=== PATIENT | male | born 1950 | race Caucasian/White ===

== ENCOUNTER → 2017-07-29 | Outpatient (CLI) | payer BC, MEDICARE | END | disposition home or self-care (01) | LOC: RAD 09:35 | PROVIDERS: ATTEND Orthopaedic Surgery | DX: M17.12 Unilateral primary osteoarthritis, left knee (principal) | CPT/HCPCS: 73700 ==

== ENCOUNTER 2017-08-24 00:33 | Inpatient (IN) | payer BC, MEDICARE ==
[~2017-08-24] VITALS: Ht 189.2 cm; Wt 108.4 kg
[2017-08-24] VITALS (13 sets, daily range): BP systolic 104–147; BP diastolic 59–86
[~2017-08-24 00:33] MED LIST: ASPI-484 PO; CITA20TA5 PO; ROSU10TA PO
[2017-08-24] MEDS ORDERED: ANCEF ONE (05:04)
[2017-08-24] MEDS ORDERED: NS 100ML 100 ML IV ONE ×2 (05:04→08:53)
[2017-08-24] MEDS ORDERED: LACTATED RINGERS 1,000 ML IV ONE (06:00)
--- NOTE | 2017-08-24 06:04 | PCM.EKG ---
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
[2017-08-24] MEDS ORDERED: ZOFRAN ONE (06:55)
[2017-08-24] MEDS ORDERED: TORADOL ONE (06:55)
[2017-08-24] MEDS ORDERED: NEOSTIGMINE ONE (06:55)
[2017-08-24] MEDS ORDERED: DECADRON ONE (06:55)
[2017-08-24] MEDS ORDERED: SUBLIMAZE ONE (06:56)
[2017-08-24] MEDS ORDERED: ZEMURON IV ONE (06:56)
[2017-08-24] MEDS ORDERED: DIPRIVAN IV ONE (06:56)
[2017-08-24] MEDS ORDERED: LIDOCAINE 2% VIAL ONE (06:57)
[2017-08-24] MEDS ORDERED: NAROPIN 0.5% 5 MG/ML VIAL ONE (06:58)
[2017-08-24] MEDS ORDERED: SODIUM CHLORIDE IR ONE (07:23)
[2017-08-24] MEDS ORDERED: NS 250ML 250 ML IV ONE (07:24)
[2017-08-24] MEDS ORDERED: NS 3000ML IRR IR ONE (07:24)
[2017-08-24] MEDS ORDERED: NS 100ML 200 ML IV ONE (07:24)
[2017-08-24] MEDS ORDERED: CLONIDINE 1,000 MCG/10 ML VIAL EP ONE (07:25)
[2017-08-24] MEDS ORDERED: DURAMORPH ONE (07:25)
[2017-08-24] MEDS ORDERED: TRANEXAMIC ACID IV ONE (07:30)
[2017-08-24] MEDS ORDERED: EXPAREL 266 MG/20 ML VIAL IJ ONE (08:30)
[2017-08-24] MEDS: LACTATED RINGERS 1,000 ML IV SCH ×2 (11:00→21:36)
[2017-08-24] MEDS ORDERED: SUBLIMAZE IV PRN (11:00)
[2017-08-24] MEDS ORDERED: ZOFRAN IV PRN (11:00)
[2017-08-24] MEDS ORDERED: MORPHINE SULFATE IV PRN ×3 (11:00→12:12)
[2017-08-24] MEDS ORDERED: LACTATED RINGERS 1,000 ML IV SCH (11:30)
[2017-08-24] MEDS ORDERED: CEPACOL SORE THROAT LOZENGE MM PRN (11:30)
--- NOTE | 2017-08-24 11:37 | HPH ---
ADMIT DATE: 08/24/2017 CHIEF COMPLAINT: Painful left knee. HISTORY OF PRESENT ILLNESS: The patient is a 67-year-old male with left knee pain for approximately 3 years. He has difficulty with household ambulation. He also complains of limping and is limited in his daily activities because of knee pain. He has been on Ultram as well as Aleve in the past. The patient is no better with cortisone injections, bracing, Orthovisc injections as well as physical therapy. He has had arthroscopy. The patient has full range of motion about the left knee. There is a 2+ effusion. His ligaments are normal. He has moderate crepitation. X-rays show that he is [id number]-[id number] medially and has narrowing and osteophytes about the patellofemoral joint. He is being admitted today for left total knee arthroplasty. PAST MEDICAL HISTORY: Medical problems include coronary artery disease. He has a history of deep venous thrombosis as well as a history of West Nile virus infection. PREVIOUS SURGICAL PROCEDURES: Include left knee scope as well as cardiac stent placement. ALLERGIES: HE HAS NO KNOWN DRUG ALLERGIES. FAMILY HISTORY: Positive for peripheral vascular disease, CVA as well as cancer. SOCIAL HISTORY: He lives in [place] with his . He does not smoke or drink. REVIEW OF SYSTEMS: Negative for chest pain, shortness of breath, nausea, vomiting, melena, hematochezia, dysuria, hematuria, fever, chills or weight loss. MEDICATIONS: Include aspirin, citalopram, as well as Crestor. PHYSICAL EXAMINATION: GENERAL: Shows a 6 feet, 2 inches, 215 pounds male in no acute distress. HEENT: Within normal limits for his age. CHEST: Clear to auscultation bilaterally. HEART: Regular rate and rhythm, no murmur. ABDOMEN: Soft, nontender, good bowel sounds. EXTREMITIES: Left knee has a 2+ effusion. He has full extension with 120 degrees of flexion and good medial and lateral stability. His Alexis and posterior drawer exam were normal. Hip has good internal and external rotation with no pain. NEUROLOGIC: He is awake and alert. He is oriented x 3. Cranial nerves 2-12 grossly intact. He has 5/5 strength of all muscle groups of his upper extremities as well as his lower extremities. ASSESSMENT: OA of the left knee. Other diagnoses include history of DVT as well as coronary artery disease. PLAN: The patient is being admitted for left total knee arthroplasty. The risks and hazards of the procedure have been explained to the patient and his family. They understand the risk and wanted to proceed. Troy Umaña MD DR: MARCIE/pablo JOB# [id number]
--- NOTE | 2017-08-24 11:46 | DIREP ---
This report includes an Addendum and supersedes previous reports for this exam. PROCEDURE:XRAY KNEE 2 VWS-LT COMPARISON:None. INDICATIONS:postop, total left knee FINDINGS: BONES:No fractures. JOINTS:The patient has had total hip arthroplasty. Prosthesis is in good position. SOFT TISSUES:Skin mp anteriorly. OTHER:No additional findings. CONCLUSION:The patient has had left total hip arthroplasty with no complications. Dictated by: Mirza Hannah M.D. on 08/24/2017 at 11:42 AM NDUM: The patient has had left total knee arthroplasty. There are no complications. Dictated by: Mirza Hannah M.D. on 08/24/2017 at 12:03 PM
--- NOTE | 2017-08-24 12:00 | NUR ---
Patient arrived to unit.
--- NOTE | 2017-08-24 12:17 | OPH ---
DATE OF SURGERY: 08/24/2017 PREOPERATIVE DIAGNOSIS: OA of the left knee. POSTOPERATIVE DIAGNOSIS: OA of the left knee. OPERATIVE PROCEDURES: Left total knee arthroplasty using Medacta Sphere knee, size 5 femur, a size 5 tibia, a 14 mm insert, large dome patella, all components were cemented. DESCRIPTION OF INDICATIONS: The patient is a 67-year-old male with left knee pain for several years. He has household pain as well as pain with prolonged ambulation. He is limited in his daily activities. He has had anti-inflammatories as well as Ultram for the pain. He has also tried physical therapy and bracing. He has had arthroscopy with no relief. He has full range of motion of the knee, good medial and lateral stability, moderate crepitation, 2+ effusion. The patient's x-rays show that he is przf-hj-jzna medially with patellofemoral narrowing and osteophytes. DESCRIPTION OF PROCEDURE: The patient was placed on the operating table in the supine position. A general endotracheal anesthetic was induced without difficulty. The patient had a well-padded tourniquet placed around the left thigh. Left lower extremity was then sterilely prepped and draped. The leg was then exsanguinated with an Esmarch and then the tourniquet was inflated to 300 mm with a good bounce. The knee was flexed to 90 degrees. An anterior incision was made about the knee. The full thickness flaps were developed medially and laterally. A medial parapatellar arthrotomy was then performed. The patient had the medial and lateral meniscectomies performed. The medial capsule and the MCL were released around the posterior medial corner. The anterior and posterior cruciate ligaments were excised. The patient then had the MyKnee femoral guide placed about the distal femur. It was held into position with multiple pins. The distal femoral cut was then made with the saw. The size 5, #2 cutting block was then placed about the distal femur. The cutting block was held into position with 2 screws and 2 pins. The patient then had an anterior and posterior femoral cuts as well as the chamfer cuts made. The patient then had the tibia subluxed anteriorly. The tibial cutting guide was applied and held into position with multiple pins. The tibial cut was then made. We then used the flexion and extension blocks and with the 14 mm block, the patient had good stability at 90 degrees as well as full extension. The patient then had a size 5 tibial trial applied and held into position with 2 pins. The central drill hole was made and then the cruciate punch was used to stabilize the tibial component. A trial reduction was done with a 5 tibia, a 5 femur and a 14 mm insert. The knee went out into full extension, he got 120 degrees of flexion. There was excellent medial and lateral stability throughout. The patient then had the patella everted. Patellar cut was made. There were still 16 mm of patella left. The drill holes were made and the large dome patella was used. There was good tracking of the patella. The final medial and lateral femoral drill holes were made. The femoral sulcus cut was made. The patient then had the trial components removed. The wounds were copiously irrigated. The soft tissue was injected with Exparel. The patient then had the size 5 tibial component cemented into position. The 14 mm insert was impacted into position and secured with an anterior screw. The patient then had the size 5 femoral component cemented as was the patella. Once all the excess cement was removed and the cement had hardened, then the patient had the wound irrigated for 3 minutes with Betadine-containing solution. The bleeding was controlled with the Aquamantys device after the tourniquet was released. The patient had the capsule closed with a #2 PDS in interrupted [id number] manner. The knee joint was then injected with 1 gram of tranexamic acid diluted with 100 mL of saline. The subQ was then closed with 2-0 Monocryl barbed in a running manner and then the skin was closed with mp. A medium size Aquacel dressing reinforced with 4 x 4's, ABD pads, cast padding and Jordan wrap was applied. The patient was extubated in the operating room, sent to recovery in stable condition. Troy Umaña MD DR: MARCIE/pablo JOB# [id number]
[2017-08-24] MEDS: TYLENOL PO SCH ×2 (13:21→17:58)
[2017-08-24] MEDS ORDERED: ANCEF 2 GM/D5W 50ML IV SCH (14:00)
[2017-08-24] MEDS: NS IV SCH ×2 (14:35→21:40)
[2017-08-24] MEDS: ANCEF IV SCH ×2 (14:35→21:40)
[2017-08-24 18:02] LABS: HEMOGLOBIN 14.5 g/dL (13.9-16.3); MEAN CELL HGB 31.6 pg (26-34); MEAN CELL HGB CONCENTRATION 32.5 g/dL (33-37); MEAN CORP VOLUME 97.2 fL (78-100); MEAN PLATELET VOLUME 9.5 fL (7.8-11.0); RED CELL DISTRIBUTION WIDTH 13.9 % (11.5-14.5); WHITE BLOOD CELL 11.7 10^3/uL (4.5-11.0)
--- NOTE | 2017-08-24 18:33 | PRM.PN ---
Subjective Subjective Date: Aug 24, 2017 Time: 18:32 Subjective Awake and alert No pain VSS HGB 14 Stable Patient History: Alzheimer's disease 32 MOTHER, , Age:78 Chronic obstructive pulmonary disease 32 MOTHER, , Age:78 33 FATHER, , Age:64 FH: coronary artery disease G8 BROTHER High cholesterol G8 BROTHER No known health problems G8 BROTHER G8 SISTER 19 CHILD 19 CHILD No Family History of: Asthma Cerebrovascular disorder Congestive heart failure Diabetes insipidus Diabetes mellitus Hypertension Parkinson's disease VTE VTE Risk Total Score: >5 VTE Risk Score VTE Risk: Score 0-1 = Low Risk (Aggressive mobilization; early ambulation; no VTE prophylaxis required) Score 2: Moderate Risk (Intermittent/Pneumatic Compression Device OR Lovenox/Heparin/Coumadin) Score 3-4: High Risk (Intermittent/Pneumatic Compression Device AND Lovenox/Heparin/Coumadin) Score > or =5: Highest Risk (Intermittent/Pneumatic Compression Device AND Lovenox/Heparin/Coumadin) Review of Systems Allergies: Coded Allergies: ticagrelor (Verified Allergy, Severe, CHEST PAIN, 08/20/17) Scheduled Aspirin (Aspir 81), 1 TAB PO HS, (Reported) Citalopram Hydrobromide (Citalopram Hbr), 1 TAB PO HS, (Reported) Rosuvastatin 10MG (Crestor 10MG), 1 TAB PO HS, (Reported) Objective Vitals and I/O Vital Sign - Last 24 Hours 08/24/17 08/24/17 08/24/17 08/24/17 06:01 06:01 07:35 07:39 Temp 97.3 Pulse 60 54 49 Resp 18 B/P (MAP) 138/60 (86) 137/86 (103) 139/83 (101) Pulse Ox 98 96 97 O2 Delivery Room Air Room Air Nasal Canula Nasal Canula O2 Flow Rate 3 3 08/24/17 08/24/17 08/24/17 08/24/17 07:48 07:59 10:46 10:46 Temp 97.8 Pulse 48 51 66 Resp 18 B/P (MAP) 147/81 (103) 140/85 (103) 122/76 (91) Pulse Ox 97 97 98 O2 Delivery Nasal Canula Nasal Canula Non-Rebreather O2 Flow Rate 3 3 10 10 08/24/17 08/24/17 08/24/17 08/24/17 10:51 11:06 11:21 11:36 Temp 97.3 97.3 97.2 97.3 Pulse 60 57 57 57 Resp 18 18 18 18 B/P (MAP) 125/72 (89) 121/68 (85) 119/70 (86) 114/65 (81) Pulse Ox 97 96 97 96 O2 Delivery Non-Rebreather Nasal Canula Nasal Canula Nasal Canula O2 Flow Rate 5 3 3 1 08/24/17 08/24/17 08/24/17 08/24/17 11:55 15:35 15:37 16:03 Temp 97.9 Pulse 74 56 Resp 12 12 20 B/P (MAP) 125/76 (92) Pulse Ox 96 96 90 O2 Delivery Room Air Nasal Cannula O2 Flow Rate 2.00 FiO2 28 Medication Reconciliation Scheduled Aspirin (Aspir 81), 1 TAB PO HS, (Reported) Citalopram Hydrobromide (Citalopram Hbr), 1 TAB PO HS, (Reported) Rosuvastatin 10MG (Crestor 10MG), 1 TAB PO HS, (Reported) Course Blood Pressure Systolic: 125 Blood Pressure Diastolic: 76 Blood Pressure Mean: 92 Assessment/Plan Assessment/Plan Patient History: Alzheimer's disease 32 MOTHER, , Age:78 Chronic obstructive pulmonary disease 32 MOTHER, , Age:78 33 FATHER, , Age:64 FH: coronary artery disease G8 BROTHER High cholesterol G8 BROTHER No known health problems G8 BROTHER G8 SISTER 19 CHILD 19 CHILD No Family History of: Asthma Cerebrovascular disorder Congestive heart failure Diabetes insipidus Diabetes mellitus Hypertension Parkinson's disease SARKIS NAIK MD Aug 24, 2017 18:33
[2017-08-24] MEDS ORDERED: CELEBREX PO SCH (21:00)
[2017-08-24] MEDS: CRESTOR PO SCH (21:00)
[2017-08-24] MEDS: CELEXA PO SCH (21:00)
[2017-08-24] MEDS ORDERED: CELEBREX PO ONE (21:00)
[2017-08-24] MEDS: ULTRAM PO PRN (21:33)
[2017-08-24] MEDS: ASPIRIN EC PO SCH (21:33)
[2017-08-25] MEDS: TYLENOL PO SCH ×5 (00:15→23:26)
[2017-08-25] MEDS: AMBIEN PO PRN ×2 (00:15→21:44)
--- NOTE | 2017-08-25 00:15 | NUR ---
PT GIVEN AMBEIN FOR INSOMNIA. REPOSITIONED PT IN BED. PULSES PALPABLE ICEMAN INTACT TO LEFT KNEE.
[2017-08-25] MEDS: ULTRAM PO PRN ×3 (01:43→20:50)
[2017-08-25 04:30] VITALS: BP 137/77
[2017-08-25 05:16] LABS: HEMOGLOBIN 13.8 g/dL (13.9-16.3); MEAN CELL HGB 31.9 pg (26-34); MEAN CORP VOLUME 96.5 fL (78-100); MEAN PLATELET VOLUME 9.6 fL (7.8-11.0); RED CELL DISTRIBUTION WIDTH 13.6 % (11.5-14.5); WHITE BLOOD CELL 14.4 10^3/uL (4.5-11.0)
[2017-08-25] MEDS: ANCEF IV SCH (05:30)
[2017-08-25] MEDS: NS IV SCH (05:30)
--- NOTE | 2017-08-25 06:30 | NUR ---
REPORT RECEIVED HANDOFF REPORT
--- NOTE | 2017-08-25 08:15 | NUR ---
PATIENT RESTING IN BED. SIDERAILS UPX2, CALL LIGHT WITHIN REACH, BED IN LOW POSITION AND LOCKED. OPATIENT REPORTS NO PAIN AND SHOWS NO SIGNS OF DISTRESS.
--- NOTE | 2017-08-25 08:40 | NUR ---
Post op pain visit POD #1 after knee surgery and nerve block. Pt is in bed with @ bedside. nerve block is still effective. No pain sensations since surgery. Pt has yet to ambulated. No complications noted. Pt is very pleased with pain block and anesthetic.
[2017-08-25 08:50] VITALS: BP 131/77
[2017-08-25] MEDS: XARELTO PO SCH (08:54)
[2017-08-25] MEDS: PEPCID PO SCH (08:54)
[2017-08-25] MEDS: COLACE PO SCH (08:54)
[2017-08-25 09:14] LABS: CALCIUM 9.1 mg/dL (8.4-10.5); CARBON DIOXIDE 29.5 mmol/L (20.0-32)
--- NOTE | 2017-08-25 10:10 | NUR ---
CATHETER DC CATHETER.
--- NOTE | 2017-08-25 10:30 | NUR ---
DISCHARGE PLAN CM VISITED WITH PATIENT AND REGARDING DISCHARGE PLAN AND NEEDS. PATIENT LIVES IN [place] AT HOME WITH HIS . HE IS IN [place] STAYING WITH A SISTER IN LAW FOR HIS SURGERY AND WILL STAY LONG NEEDED FOR PHYSICAL THERAPY AND FOLLOW UP APPOINTMENTS. 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 PATIENT HAS A WALKER THAT HE BROUGHT TO [place] WITH HIM AND A SHOWER CHAIR BACK HOME IN [place]. HE IS NOT ON HOME OXYGEN. PATIENT WANTS TO COME TO [facility] FOR OUTPATIENT PHYSICAL THERAPY. CM SPOKE WITH ORTHOTICS DEPT AT [facility] IN [place] AND ORDER FAXED FOR CPM. [facility] STATED THEY WILL DELIVER THE CPM BUT IT MAY BE THURSDAY OR THURSDAY BEFORE THEY COME TO [place]. DISCHARGE GOAL IS TO DISCHARGE TO IRAM'S HOME WITH HIS AND IRAM AND COMPLETE HIS PHYSICAL THERAPY AT [facility] AN OUTPATIENT. CM DEPT WILL CONTINUE TO MONITOR DISCHARGE NEEDS.
[2017-08-25] MEDS: LACTATED RINGERS 1,000 ML IV SCH (11:00)
[2017-08-25] MEDS ORDERED: NEURONTIN PO SCH (11:00)
--- NOTE | 2017-08-25 11:04 | DIREP ---
PROCEDURE:CHEST 2 VIEWS COMPARISON:None. INDICATIONS:cad FINDINGS: LUNGS/PLEURA:Low lung volumes. Presumed linear atelectasis or scarring at the left lung base. No confluent airspace consolidation, sizeable pleural effusion or appreciable pneumothorax is identified. VASCULATURE:Normal. Unremarkable pulmonary vasculature. CARDIAC:The heart is not significantly enlarged for technique. MEDIASTINUM:Mediastinal contours appear within normal limits. BONES:Mild degenerative changes of the thoracic spine. OTHER:Negative. CONCLUSION: 1. Low lung volumes. No acute cardiopulmonary abnormality identified. Dictated by: Forrest Mora M.D. On 08/25/2017 at 11:01 AM
--- NOTE | 2017-08-25 11:40 | PRM.PN ---
Subjective Subjective Date: August 25, 2017 Time: 11:38 Subjective Up in chair with PT Unable to wt bear because of quad weakness from block No pain HGB 13.8 Good rom of ankle Cont with PT Patient History: Alzheimer's disease 32 MOTHER, , Age:78 Chronic obstructive pulmonary disease 32 MOTHER, , Age:78 33 FATHER, , Age:64 FH: coronary artery disease G8 BROTHER High cholesterol G8 BROTHER No known health problems G8 BROTHER G8 SISTER 19 CHILD 19 CHILD No Family History of: Asthma Cerebrovascular disorder Congestive heart failure Diabetes insipidus Diabetes mellitus Hypertension Parkinson's disease VTE VTE Risk Total Score: >5 VTE Risk Score VTE Risk: Score 0-1 = Low Risk (Aggressive mobilization; early ambulation; no VTE prophylaxis required) Score 2: Moderate Risk (Intermittent/Pneumatic Compression Device OR Lovenox/Heparin/Coumadin) Score 3-4: High Risk (Intermittent/Pneumatic Compression Device AND Lovenox/Heparin/Coumadin) Score > or =5: Highest Risk (Intermittent/Pneumatic Compression Device AND Lovenox/Heparin/Coumadin) Review of Systems Allergies: Coded Allergies: ticagrelor (Verified Allergy, Severe, CHEST PAIN, 08/20/17) Scheduled Aspirin (Aspir 81), 1 TAB PO HS, (Reported) Citalopram Hydrobromide (Citalopram Hbr), 1 TAB PO HS, (Reported) Rosuvastatin 10MG (Crestor 10MG), 1 TAB PO HS, (Reported) Objective Vitals and I/O Vital Sign - Last 24 Hours 08/24/17 08/24/17 08/24/17 08/24/17 11:55 15:35 15:37 16:03 Temp 97.9 Pulse 74 56 Resp 12 12 20 B/P (MAP) 125/76 (92) Pulse Ox 96 96 90 O2 Delivery Room Air Nasal Cannula O2 Flow Rate 2.00 FiO2 28 08/24/17 08/24/17 08/24/17 08/24/17 19:20 19:37 21:09 23:44 Temp 97.7 97.3 Pulse 67 67 63 Resp 18 18 B/P (MAP) 125/73 (90) 104/59 (74) Pulse Ox 94 94 90 O2 Delivery Nasal Cannula Nasal Canula Nasal Cannula Nasal Canula O2 Flow Rate 2.00 2.00 08/25/17 08/25/17 08/25/17 08/25/17 04:30 08:50 09:05 09:10 Temp 98.0 98.0 Pulse 54 51 60 Resp 18 20 18 B/P (MAP) 137/77 (97) 131/77 (95) Pulse Ox 94 98 92 O2 Delivery Nasal Canula Nasal Cannula Nasal Cannula O2 Flow Rate 2.00 2.00 FiO2 28 Intake and Output 08/24/17 08/24/17 08/25/17 15:00 23:00 07:00 Intake Total 7460 ml 940 ml 600 ml Output Total 500 ml 2000 ml 1600 ml Balance 6960 ml -1060 ml -1000 ml Medication Reconciliation Scheduled Aspirin (Aspir 81), 1 TAB PO HS, (Reported) Citalopram Hydrobromide (Citalopram Hbr), 1 TAB PO HS, (Reported) Rosuvastatin 10MG (Crestor 10MG), 1 TAB PO HS, (Reported) Course Blood Pressure Systolic: 131 Blood Pressure Diastolic: 77 Blood Pressure Mean: 95 Assessment/Plan Assessment/Plan Patient History: Alzheimer's disease 32 MOTHER, , Age:78 Chronic obstructive pulmonary disease 32 MOTHER, , Age:78 33 FATHER, , Age:64 FH: coronary artery disease G8 BROTHER High cholesterol G8 BROTHER No known health problems G8 BROTHER G8 SISTER 19 CHILD 19 CHILD No Family History of: Asthma Cerebrovascular disorder Congestive heart failure Diabetes insipidus Diabetes mellitus Hypertension Parkinson's disease SARKIS NAIK MD August 25, 2017 11:40
[2017-08-25 11:58] VITALS: BP 120/65
--- NOTE | 2017-08-25 14:30 | NUR ---
Decreased quad control with gait. Signed: 08/25/17 at 1430 by Debo Dailey, INTERMEDIATE PROJECT MANAGER PT
--- NOTE | 2017-08-25 16:43 | NUR ---
STATUS PATIENT URINATED 150 CC CLEAR YELLOW URINE.
[2017-08-25 16:57] VITALS: BP 127/79
--- NOTE | 2017-08-25 18:30 | NUR ---
REPORT GAVE HANDOFF REPORT
[2017-08-25 19:50] VITALS: BP 121/73
[2017-08-25] MEDS: ASPIRIN EC PO SCH (20:36)
[2017-08-25] MEDS: CELEXA PO SCH (21:00)
[2017-08-25] MEDS: CRESTOR PO SCH (21:00)
[2017-08-26 00:35] VITALS: BP 135/57
[2017-08-26] MEDS: LACTATED RINGERS 1,000 ML IV SCH ×2 (03:40→20:20)
[2017-08-26] MEDS: ULTRAM PO PRN ×5 (04:22→20:35)
[2017-08-26 05:01] VITALS: BP 137/79
--- NOTE | 2017-08-26 05:08 | CNH ---
DATE OF CONSULTATION: PRIMARY PHYSICIAN: Troy Umaña MD CHIEF COMPLAINT: Preop evaluation before left knee replacement. HISTORY OF PRESENT ILLNESS: The patient is a 67-year-old white male who has known history of CAD, who had an acute coronary event over a year ago and had a LAD stenting done and was on Effient and aspirin, which have been stopped for over 2 weeks now and he is going to undergo left total knee arthroplasty for severe degenerative joint disease and has difficulty walking. Denies any history of any chest pain or unusual shortness of breath. He does have some generalized weakness and fatigue. No leg edema and no other known chronic medical illness such as hypertension, diabetes. Has dyslipidemia. ALLERGIES: BRILINTA. MEDICATIONS: He has been on aspirin 81 mg once a day, citalopram 20 mg once a day, Crestor 10 mg once a day. He was on Effient, which has been stopped. PAST MEDICAL HISTORY: History of West Nile virus infection few years ago, has deep vein thrombosis and coronary event, dyslipidemia. SOCIAL HISTORY: He lives in [place] with his . No smoking. No alcohol abuse. FAMILY HISTORY: Positive for peripheral vascular disease and had stroke and cancer in the family. Mother of dementia and complications. PHYSICAL EXAMINATION: GENERAL: He is alert, awake and oriented. VITAL SIGNS: 95 kg, 189 cm and 26.6 kilograms per meter squared BMI with a pulse of about 50. Blood pressure was 120/60, respirations 18, 96 saturations. HEENT: Unremarkable. NECK: No JVD, no carotid bruits. LUNGS: Clear. HEART: Sounds normal, bradycardia noted. ABDOMEN: Soft, nontender. No organomegaly. EXTREMITIES: Distal pulses fairly well felt. Left knee painful. No edema noted. NEUROLOGIC: No obvious neuro deficit. IMAGING STUDIES: EKG: Regular sinus rhythm, within normal limits. ____ all acceptable. IMPRESSION: Preop cardiovascular evaluation, history of dyslipidemia, coronary event, LAD stenting, asymptomatic, bradycardia, rule out underlying sinus node dysfunction with a baseline rate of 50, has dropped down into the mid 40s, very likely has sinus node dysfunction. RECOMMENDATIONS: At this time, the patient clinically is stable for surgery at this time under anesthesia. We will follow postop and further management depending on the clinical course. Thank you very much for this consultation. Laxmichand MD Shahla DR: BAILEY/pablo JOB# [id number]
[2017-08-26 05:12] LABS: HEMOGLOBIN 13.6 g/dL (13.9-16.3); MEAN CELL HGB 31.9 pg (26-34); MEAN CELL HGB CONCENTRATION 32.9 g/dL (33-37); MEAN PLATELET VOLUME 9.9 fL (7.8-11.0); RED CELL DISTRIBUTION WIDTH 14.1 % (11.5-14.5); WHITE BLOOD CELL 10.3 10^3/uL (4.5-11.0)
[2017-08-26] MEDS: TYLENOL PO SCH ×3 (06:08→17:00)
--- NOTE | 2017-08-26 07:16 | PNH ---
DATE: 08/25/2017 PRIMARY PHYSICIAN: Troy Umaña MD SUBJECTIVE: Post left knee replacement. OBJECTIVE: VITAL SIGNS: Stable. His temperature is 98, 54 pulse, respiration 18, 137/77 blood pressure, saturation 98% on 2 liters nasal cannula. Intake and output shows that he has positive balance of almost 4900. We will discontinue fluids. He is drinking well. LUNGS: Clinically, clear. HEART: Sounds are normal. LABORATORY DATA: Hemoglobin 13.8, dropped from 14.5. Postoperatively, electrolytes were normal today with a BUN of 14 and creatinine 0.9 and slight low albumin of 3.3. INR 1.1. Doing well on incentive spirometry. Pain status seems to be fairly acceptable around 3-4 and he will be doing physical therapy. IMPRESSION: Post left knee replacement, CAD, post-acute coronary event about a year ago, was on dual antiplatelet therapy, off of it for 3 weeks and on Xarelto 10 mg once a day, post-knee replacement along with aspirin 81 mg once a day and he is not on any beta blockers sinus bradycardia, underlying sinus node dysfunction was a consideration. PLAN: At this time, continue physical therapy. Laxmichand MD Shahla DR: BAILEY/pablo JOB# [id number]
--- NOTE | 2017-08-26 07:25 | NUR ---
REPORT RECEIVED FROM ARTURO RILEY. PATIENT AWAKE AND ALERT SITTING UP IN BED. LEFT KNEE WITH ICE MAN IN PLACE. PATIENT REPORTS LEFT KNEE FEELS "REMBERTO HOT". ICE MAN CHECKED AND COLD TO TOUCH. PULSES PRESENT. REPORTS PAIN IS "3" ON PAIN SCALE. AGREES TO PAIN MED PRIOR TO PHYSICAL THERAPY. FAMILY AT BEDSIDE. SR UP X2. CALL LIGHT WITHIN REACH.
[2017-08-26 08:03] VITALS: BP 131/70
--- NOTE | 2017-08-26 08:19 | PRM.PN ---
Subjective Subjective Date: August 26, 2017 Time: 08:18 Subjective Some pain this am Better active ROM VSS HGB 13.6 Cont with PT Patient History: Alzheimer's disease 32 MOTHER, , Age:78 Chronic obstructive pulmonary disease 32 MOTHER, , Age:80 33 FATHER, , Age:64 FH: coronary artery disease G8 BROTHER High cholesterol G8 BROTHER No known health problems G8 BROTHER G8 SISTER 19 CHILD 19 CHILD No Family History of: Asthma Cerebrovascular disorder Congestive heart failure Diabetes insipidus Diabetes mellitus Hypertension Parkinson's disease VTE VTE Risk Total Score: >5 VTE Risk Score VTE Risk: Score 0-1 = Low Risk (Aggressive mobilization; early ambulation; no VTE prophylaxis required) Score 2: Moderate Risk (Intermittent/Pneumatic Compression Device OR Lovenox/Heparin/Coumadin) Score 3-4: High Risk (Intermittent/Pneumatic Compression Device AND Lovenox/Heparin/Coumadin) Score > or =5: Highest Risk (Intermittent/Pneumatic Compression Device AND Lovenox/Heparin/Coumadin) Review of Systems Allergies: Coded Allergies: ticagrelor (Verified Allergy, Severe, CHEST PAIN, 08/20/17) Scheduled Aspirin (Aspir 81), 1 TAB PO HS, (Reported) Citalopram Hydrobromide (Citalopram Hbr), 1 TAB PO HS, (Reported) Rosuvastatin 10MG (Crestor 10MG), 1 TAB PO HS, (Reported) Objective Vitals and I/O Vital Sign - Last 24 Hours 08/25/17 08/25/17 08/25/17 08/25/17 08:50 09:05 09:10 11:58 Temp 98.0 97.9 Pulse 51 60 54 Resp 20 18 20 B/P (MAP) 131/77 (95) 120/65 (83) Pulse Ox 98 92 99 O2 Delivery Nasal Cannula Nasal Cannula O2 Flow Rate 2.00 2.00 FiO2 28 08/25/17 08/25/17 08/25/17 08/25/17 16:57 19:24 19:50 20:34 Temp 98.8 97.8 Pulse 53 52 59 Resp 18 18 18 B/P (MAP) 127/79 (95) 121/73 (89) Pulse Ox 96 96 96 O2 Delivery Room Air Nasal Cannula Room Air O2 Flow Rate 2.00 08/26/17 08/26/1718 00:35 05:01 08:03 Temp 98.3 97.8 98.3 Pulse 57 53 54 Resp 16 16 18 B/P (MAP) 135/57 (83) 137/79 (98) 131/70 (90) Pulse Ox 91 94 94 O2 Delivery Room Air Intake and Output 08/25/17 08/25/17 08/26/17 15:00 23:00 07:00 Intake Total 1480 ml 560 ml Output Total 1350 ml 1900 ml Balance 130 ml -1340 ml Medication Reconciliation Scheduled Aspirin (Aspir 81), 1 TAB PO HS, (Reported) Citalopram Hydrobromide (Citalopram Hbr), 1 TAB PO HS, (Reported) Rosuvastatin 10MG (Crestor 10MG), 1 TAB PO HS, (Reported) Course Blood Pressure Systolic: 131 Blood Pressure Diastolic: 70 Blood Pressure Mean: 90 Assessment/Plan Assessment/Plan Patient History: Alzheimer's disease 32 MOTHER, , Age:80 Chronic obstructive pulmonary disease 32 MOTHER, , Age:80 33 FATHER, , Age:64 FH: coronary artery disease G8 BROTHER High cholesterol G8 BROTHER No known health problems G8 BROTHER G8 SISTER 19 CHILD 19 CHILD No Family History of: Asthma Cerebrovascular disorder Congestive heart failure Diabetes insipidus Diabetes mellitus Hypertension Parkinson's disease SARKIS NAIK MD August 26, 2017 08:19
--- NOTE | 2017-08-26 08:20 | NUR ---
STATUS PATIENT SITTING IN BED SOCIALIZING. HELPED PATIENT WITH ORAL CARE. PATIENT REPORTS PAIN 3. SIDE RAILS UP X2, BED LOCKED AND IN LOW POSITION, CALL LIGHT WITHIN REACH. Addendum: 08/26/17 at 1204 by Carole Albert LVN - Med/Surg NAIL FEEDER GAVE 50 MG OF ULTRAM.
[2017-08-26] MEDS: PEPCID PO SCH (08:24)
[2017-08-26] MEDS: COLACE PO SCH (08:24)
[2017-08-26] MEDS: XARELTO PO SCH (08:24)
--- NOTE | 2017-08-26 11:00 | NUR ---
TEACHING DISCUSSED WITH PATIENT AND GAVE A HAND OUT REGARDING XARELTO USES AND S/S TO REPORT. PATIENT AND SPOUSE VERBALIZED UNDERSTANDING. PATIENT REPORTS PAIN OF 5. AT 0820 PATIENT ONLY WANTED TO TAKE ON 50 MG TABLET OF ULTRAM INSTEAD OF TWO TABLETS. THER WAS AN ORDER FOR EITHER ONE 50MG TABLET OR 2 50 MG TABLETS Q 4 HRS. PATIENT REQUESTED THE OTHER TABLET. DISCUSSED REQUEST WITH ANGIE AND SHE SAID IT WAS OK TO GIVE THE OTHER TABLET AT THIS TIME ALONG WITH THE ORDERED 1000MG TYLENOL.
[2017-08-26 12:29] VITALS: BP 124/66
[2017-08-26] MEDS: DURAMORPH IV PRN (12:58)
--- NOTE | 2017-08-26 13:28 | NUR ---
CPM PLACED CPM MACHINE ON PATIENT. SIDE RAILS UP X2, CALL LIGHT WITH IN REACH
--- NOTE | 2017-08-26 14:40 | NUR ---
CPM TOOK PATIENT OFF CPM. PATIENT TOLERATED WELL. SIDE RAILS UPX2, CALL LIGHT IN REACH.
[2017-08-26] MEDS ORDERED: ULTRAM PO PRN (16:30)
[2017-08-26 17:46] VITALS: BP 131/72
[2017-08-26 20:01] VITALS: BP 141/77
--- NOTE | 2017-08-26 20:02 | NUR ---
PT TRANSFERED TO BED, PLACED CPM ON LEFT LEG, RAISED SIDE RAIL. CALL LIGHT IN REACH PT STATED NO ADDITIONAL NEEDS AT THIS TIME. CPM SET AT 70 DEGREES FLEXION AND -1 DEGREE EXTENTION. Addendum: 08/27/17 at 0259 by Delicia Alston LVN - Med Surg [employer] CORRECT TIME 2201
--- NOTE | 2017-08-26 20:30 | NUR ---
PT REQUESTING PAIN MEDICATION PAIN LEVEL OF 7/10. PT REFUSED TO WALK OR CPM DUE TO PAIN LEVEL.
[2017-08-26] MEDS: CELEXA PO SCH (20:35)
[2017-08-26] MEDS: CRESTOR PO SCH (20:35)
[2017-08-26] MEDS: ASPIRIN EC PO SCH (20:35)
--- NOTE | 2017-08-26 20:35 | NUR ---
HS MEDICATION WHILE GIVING PT HIS MEDICATION, I EXPLAINED WHY I WAS UNABLE TO GIVE HIS CHOLESTEROL MEDICATION AT THIS TIME BECAUSE IT WAS NOT AVAILABLE. PT INFORMED ME THAT HE HAS BEEN TAKING HIS OWN CHOLESTEROL MEDICATON PLUS HIS OWN CELEXA, HE THEN STATED THAT HIS DOCTOR TOLD HIM THAT HE COULD TAKE IT. WHEN ASKED WHICH DOCTOR PT STATED "I DON'T REMEMBER WHICH ON FOR SURE, MAYBE ABDOUL." I EXPLAINED THE IMPORTANCE OF MAKING SURE ANY NURSE THAT IS GIVING HIS MEDS IS SURE OF WHAT HE HAS ALREADY TAKING SO THAT HE IS NOT GIVEN 2 DOSES OF SAME MED. AFTER GOING OVER EACH MEDICATION HE STATED THAT THE CRESTOR AND CITALOPRAM WERE THE ONLY MEDICATIONS TAKEN OF HIS OWN.
--- NOTE | 2017-08-26 22:16 | NUR ---
UPON LEAVING PT'S ROOM, RAIN Caal SITTING AT NURSE'S STATION NOTIFIED ME THAT PT'S HAD CALLED HER STATING PT HAD NOT WALKED AND HAD NOT HAD CPM ON. I NOTIFIED RAIN THAT I HAD JUST PLACED CPM ON PT AND HAD JUST LEFT HIS ROOM. PT VOICE NO COMPLAINTS TO THIS NURSE WHILE IN ROOM.
[2017-08-27] VITALS: BP 138/80
--- NOTE | 2017-08-27 00:12 | NUR ---
PT TAKEN OFF CPM, PT REPORTS TOLERATED WELL. ICEMAN IN PLACE WORKING WELL, SCD'S ON SUSI FEET INTACT. CALL LIGHT REMAINS IN REACH. PT REQUEST PAIN MEDICATION.
[2017-08-27] MEDS: TYLENOL PO SCH ×3 (00:21→12:00)
[2017-08-27] MEDS: ULTRAM PO PRN ×2 (00:21→04:34)
--- NOTE | 2017-08-27 00:23 | NUR ---
PT GIVEN PAIN MEDICATION PER REQUEST. PT STATED THAT HE WANTED TO GET BACK IN RECLINER, BECAUSE HE COULDN'T FIND COMFORTABLE POSTION IN BED. PT WAS ABLE TO TRANSFER FROM BED TO RECLINER WITH STAND BY ASSIST, ONLY NEEDING HELP WITH REMOVING SCD'. PT NOW SITTING UP IN RECLINER, CALL LIGHT IN REACH. EMPTIED 275 CC URINE FROM URINAL. PT DENIES ADDITIONAL NEEDS AT THIS TIME.
--- NOTE | 2017-08-27 03:52 | NUR ---
pt up ambulated in hallway from room to first set of double doors, standby assist, tolerated well. pt now back in bed, scd's on anna feet, side rails up x 2, call light in reach
[2017-08-27 04:06] VITALS: BP 117/66
--- NOTE | 2017-08-27 04:28 | NUR ---
pt up to recliner, given pain medication per request. call light in reach
--- NOTE | 2017-08-27 07:09 | NUR ---
REPORT REPORT RECEIVED FROM DIRECTOR SURFACE TRANSPORTATION
[2017-08-27 07:21] VITALS: BP 130/71
[2017-08-27] MEDS: DURAMORPH IV PRN ×2 (07:40→11:48)
[2017-08-27] MEDS: COLACE PO SCH (08:00)
[2017-08-27] MEDS: PEPCID PO SCH (08:00)
[2017-08-27] MEDS: XARELTO PO SCH (08:00)
--- NOTE | 2017-08-27 10:38 | PRM.PN ---
Subjective Subjective Date: August 27, 2017 Time: 10:36 Subjective Some pain during the night but better now ( block wore off) VSS Independent with PT and OT Wound ok Will dc Patient History: Alzheimer's disease 32 MOTHER, , Age:78 Chronic obstructive pulmonary disease 32 MOTHER, , Age:80 33 FATHER, , Age:64 FH: coronary artery disease G8 BROTHER High cholesterol G8 BROTHER No known health problems G8 BROTHER G8 SISTER 19 CHILD 19 CHILD No Family History of: Asthma Cerebrovascular disorder Congestive heart failure Diabetes insipidus Diabetes mellitus Hypertension Parkinson's disease VTE VTE Risk Total Score: >5 VTE Risk Score VTE Risk: Score 0-1 = Low Risk (Aggressive mobilization; early ambulation; no VTE prophylaxis required) Score 2: Moderate Risk (Intermittent/Pneumatic Compression Device OR Lovenox/Heparin/Coumadin) Score 3-4: High Risk (Intermittent/Pneumatic Compression Device AND Lovenox/Heparin/Coumadin) Score > or =5: Highest Risk (Intermittent/Pneumatic Compression Device AND Lovenox/Heparin/Coumadin) Review of Systems Allergies: Coded Allergies: ticagrelor (Verified Allergy, Severe, CHEST PAIN, 08/20/17) Scheduled Aspirin (Aspir 81), 1 TAB PO HS, (Reported) Citalopram Hydrobromide (Citalopram Hbr), 1 TAB PO HS, (Reported) Rosuvastatin 10MG (Crestor 10MG), 1 TAB PO HS, (Reported) Objective Vitals and I/O Vital Sign - Last 24 Hours 08/26/17 08/26/17 08/26/17 08/26/17 12:29 17:46 19:56 20:01 Temp 98.1 98.0 97.9 Pulse 58 58 52 Resp 18 18 B/P (MAP) 124/66 (85) 131/72 (91) 141/77 (98) Pulse Ox 96 98 96 O2 Delivery Room Air Room Air Room Air Room Air 08/26/17 08/26/17 08/27/17 08/27/17 21:10 22:08 00:00 04:06 Temp 98.8 97.9 Pulse 54 59 60 Resp 18 17 18 B/P (MAP) 138/80 (99) 117/66 (83) Pulse Ox 97 95 94 O2 Delivery Room Air Room Air Room Air FiO2 21 08/27/17 08/27/17 08/27/17 08/27/17 07:21 07:46 08:07 08:39 Temp 98.5 Pulse 62 60 60 Resp 18 18 18 B/P (MAP) 130/71 (90) Pulse Ox 96 95 95 O2 Delivery Room Air Room Air Room Air Room Air FiO2 21 21 Intake and Output 08/26/17 08/26/17 08/27/17 15:00 23:00 07:00 Intake Total 360 ml 1390 ml 582 ml Output Total 1050 ml 1125 ml Balance 360 ml 340 ml -543 ml Medication Reconciliation Scheduled Aspirin (Aspir 81), 1 TAB PO HS, (Reported) Citalopram Hydrobromide (Citalopram Hbr), 1 TAB PO HS, (Reported) Rosuvastatin 10MG (Crestor 10MG), 1 TAB PO HS, (Reported) Course Blood Pressure Systolic: 130 Blood Pressure Diastolic: 71 Blood Pressure Mean: 90 Assessment/Plan Assessment/Plan Patient History: Alzheimer's disease 32 MOTHER, , Age:78 Chronic obstructive pulmonary disease 32 MOTHER, , Age:80 33 FATHER, , Age:64 FH: coronary artery disease G8 BROTHER High cholesterol G8 BROTHER No known health problems G8 BROTHER G8 SISTER 19 CHILD 19 CHILD No Family History of: Asthma Cerebrovascular disorder Congestive heart failure Diabetes insipidus Diabetes mellitus Hypertension Parkinson's disease SARKIS NAIK MD August 27, 2017 10:38
[2017-08-27 11:38] VITALS: BP 128/71
[2017-08-27 12:00] VITALS: BP 128/71
--- NOTE | 2017-08-27 12:38 | ECHO ---
DATE OF SERVICE: 08/25/2017 INDICATIONS: A 67-year-old male with history of CAD, post-PCI 1 year ago, bradycardia, post-knee replacement, assess LV function. PRIMARY PHYSICIAN: Jeannette Gale MD FINDINGS: Mitral valve shows normal motion, mild mitral regurgitation, 2.9 meters velocity, normal E to A ratio. Normal aorta, normal aortic valve opening, mild tricuspid regurgitation with 2 meters velocity and right ventricular systolic pressure 26 mm. Right ventricle is normal. Right atrium appears to be mildly enlarged in 4 chamber view. Left atrium is mildly enlarged in 4 chamber view. M-MODE is normal. Left atrial volume 46 mL, normal LV size of 5.14 cm end diastolic dimension, 2.87 cm end systolic dimension, normal wall thickness, motion contraction, 59% ejection fraction. Pericardium is normal, no thrombus in any of his cardiac chambers. No wall motion abnormality. Jeannette Gale MD DR: BAILEY/pablo JOB# [id number]
--- NOTE | 2017-08-27 18:21 | DSH ---
DATE OF DISCHARGE: 08/27/2017 ADMITTING DIAGNOSES: Include OA of the left knee, history of coronary artery disease, history of atrial fibrillation, history of DVT, history of West Nile virus infection and history of atrial fibrillation. DISCHARGE DIAGNOSES: Include OA of the left knee, history of coronary artery disease, history of atrial fibrillation, history of DVT, history of West Nile virus infection and history of atrial fibrillation. OPERATIVE PROCEDURE DATE: 08/24/2017. PROCEDURE PERFORMED: Left total knee arthroplasty. SUMMARY OF ADMISSION: A 67-year-old male with a 3-year history of pain about the left knee secondary to osteoarthritis. He had pain with household ambulation as well as limping and restrictions of his daily activity because of knee pain. He was no better with cortisone injections, bracing, Orthovisc and arthroscopy. He was [id number] medially as well as having significant arthritic changes about his patellofemoral joint. The patient was taken to the operating room on 08/24/2017 for left total knee arthroplasty for pain relief. The patient's surgery was performed on 08/24/2017. He tolerated the procedure well. Postoperatively, he has done well. His neurovascular exam has been normal throughout the postoperative course. He has been on a regular diet, which he has tolerated well. He has had physical therapy as well as occupational therapy. With the first 24-36 hours, the patient had some weakness about the leg secondary to the anesthesia block, so he was a little slow getting going with his physical therapy, but on discharge, the patient can ambulate 200 feet with his walker. He is independent with stairs and transfers. The patient has been on Xarelto as well as early ambulation and foot pump, SCDs for DVT prophylaxis. On discharge, the patient's wound is benign. His hemoglobin dropped to a low of 13. The patient's pain has been controlled with tramadol. The patient will be discharged today on 08/27/2017. He will be instructed to use his walker to ambulate. He can weightbear as tolerated. The patient has physical therapy set up at the hospital starting tomorrow. He will be asked to leave his Aquacel dressing intact and to leave his leg elevated as much as possible. He will see me back in my office in 1 week. Troy Umaña MD DR: MARCIE/pablo JOB# [id number]
--- NOTE | 2017-08-29 11:53 | PNH ---
DATE: 08/27/2017 This is a 67-year-old who was admitted on 08/24/2017, was discharged on 08/27/2017. He was admitted under Dr. Leeroy MD SUBJECTIVE: The patient is a 67-year-old white male who came with degenerative joint disease of his right knee who came for a knee replacement with severe osteoarthritis of right knee and he had a prior cardiac event over a year ago, was on aspirin and Effient, not on any beta blockers, but was on Crestor, citalopram and he did well during the operation and postoperatively initially was bradycardic, but his rate stayed in the mid 50s. He is asymptomatic, was having some pain in his right knee and sent home on citalopram 10 mg once a day and Crestor 10 mg once a day, aspirin was stopped. He should be on Xarelto 10 mg once a day. We will make sure that he is on Xarelto 10 mg once a day and he has got history of DVT in the past. We will make sure that he is on Xarelto 10 mg once a day. Continue rest of the medications. Laxmichand MD Shahla DR: BAILEY/pablo JOB# [id number]
== END 2017-08-27 12:08 | disposition home or self-care (01) | DRG 470 ==
LOC: MS 00:33
PROVIDERS: ADMIT Orthopaedic Surgery; ATTEND Orthopaedic Surgery
PROC: 0SRD0J9 Replacement of Left Knee Joint with Synthetic Substitute, Cemented, Open Approach (ICD-10-PCS; principal; 2017-08-24 08:00)
DX: M17.12 Unilateral primary osteoarthritis, left knee (principal); I48.91 Unspecified atrial fibrillation; E78.5 Hyperlipidemia, unspecified; I25.10 Atherosclerotic heart disease of native coronary artery without angina pectoris; F41.9 Anxiety disorder, unspecified; Z86.718 Personal history of other venous thrombosis and embolism; Z95.5 Presence of coronary angioplasty implant and graft; Z82.3 Family history of stroke; Z79.01 Long term (current) use of anticoagulants; Z84.89 Family history of other specified conditions; Z80.8 Family history of malignant neoplasm of other organs or systems; Z79.899 Other long term (current) drug therapy; Z79.82 Long term (current) use of aspirin; Z88.8 Allergy status to other drugs, medicaments and biological substances; Z81.8 Family history of other mental and behavioral disorders; Z82.49 Family history of ischemic heart disease and other diseases of the circulatory system; Z83.6 Family history of other diseases of the respiratory system
CPT/HCPCS: 36415; 64447; 71046; 80053; 83735; 85027; 85610; 93005; 93307; 97161; 97166; A4338; J0690; J1100; J1885; J2001; J2405; J2795; J3010; J3490; J7030; J7050; J7120; 73560-LT; 97110-GP; 97116-GP; 97530-GP; 97535-GO; 97760-GP; A9270; C1776; C9290; G8978-CK; G8979-CJ; G8987; G8988; J2274; J2710; J8499